=== PATIENT | male | born 1955 | race African-American/Black ===

== ENCOUNTER 2019-02-10 07:37 | Inpatient (IN) | payer OTHER ==
[2019-02-10] MEDS ORDERED: SODIUM CHLORIDE 0.9% 1,000 ML IV ONE (08:05)
[2019-02-10 08:58] LABS: Basophils % (A) 0 %; Eosinophils # (A) 0.2 k/uL (0-0.7); Eosinophils % (A) 2 %; HCT 41.1 % (39.0-53.0); HGB 13.6 gm/dL (13.0-17.5); Lymphocytes # (A) 1.6 k/uL (1.0-4.8); Lymphocytes % (A) 20 %; MCH 27.6 pg (25.0-35.0); MCV 83.8 fL (80.0-100.0); Monocytes # (A) 0.5 k/uL (0-1.0); Monocytes % (A) 6 %; Neutrophils # (A) 5.4 k/uL (1.3-7.7); Neutrophils % (A) 69 %; Platelet Count 181 k/uL (150-450); RBC 4.91 m/uL (4.30-5.90); RDW 15.4 % (11.5-15.5); WBC 7.8 k/uL (3.8-10.6)
--- NOTE | 2019-02-10 09:06 | ED ---
General Adult HPI - General Source: patient, EMS, RN notes reviewed Mode of arrival: EMS Limitations: altered mental status <Rory Alvarez - Last Filed: 02/10/19 09:35> <Gabriel Joyce - Last Filed: 02/10/19 09:55> - General Chief complaint: Altered Mental Status Stated complaint: mental health Time Seen by Provider: 02/10/19 07:38 - History of Present Illness Initial comments: This is a 63-year-old male presents to emergency department as a transfer from [facility] for possible rhabdomyolysis, altered mental. [place] when he became belligerent. Patient reportedly had marijuana on him. Patient was agitated, aggressive towards staff at the other hospital he was given Ativan and ketamine. Patient is drowsy, confused at this time. Patient did have a normal CT of his head. Patient had lab work which revealed evidence of THC and opiates in his drug screen. Patient's labwork showed elevated CK over 3000. Patient was given IV fluid bolus including D5 with sodium bicarb patient gives little information at this time though he has no specific complaints. Patient denies chest pain, shortness breath, headache or dizziness. Patient also reportedly had an episode of tachycardia and which they believe this was SVT though he was not converted or given any medications (Rory Alvarez) - Related Data Allergies Allergy/AdvReac Type Severity Reaction Status Date / Time No Known Allergies Allergy Verified 02/10/19 08:22 Review of Systems ROS Other: All systems not noted in ROS Statement are negative. <Rory Alvarez - Last Filed: 02/10/19 09:35> ROS Other: All systems not noted in ROS Statement are negative. <Gabriel Joyce - Last Filed: 02/10/19 09:55> ROS Statement: Those systems with pertinent positive or pertinent negative responses have been documented in the HPI. Past Medical History Past Medical History: Unable to Obtain History of Any Multi-Drug Resistant Organisms: Unobtainable Past Surgical History: Unable to Obtain Past Psychological History: Anxiety, Depression Smoking Status: Unknown if ever smoked Past Drug Use History: Marijuana, Opiates <Rory Alvarez - Last Filed: 02/10/19 09:35> General Exam Limitations: altered mental status General appearance: alert, in no apparent distress Head exam: Present: atraumatic, normocephalic, normal inspection Eye exam: Present: normal appearance, PERRL, EOMI. Absent: scleral icterus, conjunctival injection, periorbital swelling ENT exam: Present: normal exam, normal oropharynx, mucous membranes moist Neck exam: Present: normal inspection, full ROM. Absent: tenderness, meningismus, lymphadenopathy Respiratory exam: Present: normal lung sounds bilaterally. Absent: respiratory distress, wheezes, rales, rhonchi, stridor Cardiovascular Exam: Present: regular rate, normal rhythm, normal heart sounds. Absent: systolic murmur, diastolic murmur, rubs, gallop, clicks GI/Abdominal exam: Present: soft, normal bowel sounds. Absent: distended, tenderness, guarding, rebound, rigid Neurological exam: Present: alert, CN II-XII intact. Absent: oriented X3 Skin exam: Present: warm, dry, intact, normal color. Absent: rash <Rory Alvarez - Last Filed: 02/10/19 09:35> Course <Gabriel Joyce - Last Filed: 02/10/19 09:55> Vital Signs 02/10/19 07:40 Temperature 98.6 F Pulse Rate 98 Respiratory 18 Rate Blood Pressure 126/83 O2 Sat by Pulse 98 Oximetry - Reevaluation(s) Reevaluation #1: 02/10/19 09:51 PA supervision: I proceeded [id number] evaluation the patient he was transferr ed from [facility] emergency department for evaluation of altered mental status and rhabdomyolysis. Patient does demonstrate evidence of rhabdomyolysis he also has a positive urine drug screen. I did review the material sent from the other facility. CT was negative. I did discuss case with Dr. vásquez patient will be admitted with consultation by neurology and psychiatry. (Gabriel Joyce) EKG Findings - EKG Results: EKG: interpreted by ERMD, sinus rhythm (Sinus tachycardia rate of 113 AR interval 136 QRS duration 68 QT since QTC 328/449 right atrial enlargement some artifact present) <Gabriel Joyce - Last Filed: 02/10/19 09:55> Medical Decision Making - Lab Data Result diagrams: 02/10/19 08:45 02/10/19 08:45 <Rory Alvarez - Last Filed: 02/10/19 09:35> - Lab Data Result diagrams: 02/10/19 08:45 02/10/19 08:45 <Gabriel Joyce - Last Filed: 02/10/19 09:55> - Medical Decision Making 63-year-old male presented for transfer for delirium, elevated CK. Patient's CK is trending up. This is concerning there is in rhabdomyolysis. Patient will admitted for IV fluid hydration, psychiatric evaluation. (Rory Alvarez) - Lab Data Lab Results 02/10/19 02/10/19 02/10/19 Range/Units 08:45 08:45 08:45 WBC (3.8-10.6) k/uL RBC (4.30-5.90) m/uL Hgb (13.0-17.5) gm/dL Hct (39.0-53.0) % MCV (80.0-100.0) fL MCH (25.0-35.0) pg MCHC (31.0-37.0) g/dL RDW (11.5-15.5) % Plt Count (150-450) k/uL Neutrophils % % Lymphocytes % % Monocytes % % Eosinophils % % Basophils % % Neutrophils # (1.3-7.7) k/uL Lymphocytes # (1.0-4.8) k/uL Monocytes # (0-1.0) k/uL Eosinophils # (0-0.7) k/uL Basophils # (0-0.2) k/uL Sodium 139 (137-145) mmol/L Potassium 4.3 (3.5-5.1) mmol/L Chloride 105 (98-107) mmol/L Carbon Dioxide 25 (22-30) mmol/L Anion Gap 9 mmol/L BUN 16 (9-20) mg/dL Creatinine 0.92 (0.66-1.25) mg/dL Est GFR (CKD-EPI)AfAm >90 (>60 ml/min/1.73 sqM) Est GFR (CKD-EPI)NonAf 90 (>60 ml/min/1.73 sqM) Glucose 94 (74-99) mg/dL Plasma Lactic Acid Lucien 1.3 (0.7-2.0) mmol/L Calcium 9.1 (8.4-10.2) mg/dL Total Bilirubin 1.1 (0.2-1.3) mg/dL AST 95 H (17-59) U/L ALT 51 (21-72) U/L Alkaline Phosphatase 61 (38-126) U/L Ammonia 14 (<30) umol/L Creatine Kinase 4574 H* (55-170) U/L Troponin I (0.000-0.034) ng/mL Total Protein 7.2 (6.3-8.2) g/dL Albumin 4.2 (3.5-5.0) g/dL Urine Opiates Screen Detected H (NotDetected) Ur Oxycodone Screen Not Detected (NotDetected) Urine Methadone Screen Not Detected (NotDetected) Ur Propoxyphene Screen Not Detected (NotDetected) Ur Barbiturates Screen Not Detected (NotDetected) U Tricyclic Antidepress Not Detected (NotDetected) Ur Phencyclidine Scrn Not Detected (NotDetected) Ur Amphetamines Screen Not Detected (NotDetected) U Methamphetamines Scrn Not Detected (NotDetected) U Benzodiazepines Scrn Detected H (NotDetected) Urine Cocaine Screen Not Detected (NotDetected) U Marijuana (THC) Screen Detected H (NotDetected) Serum Alcohol <10 mg/dL 02/10/19 02/10/19 Range/Units 08:45 08:45 WBC 7.8 (3.8-10.6) k/uL RBC 4.91 (4.30-5.90) m/uL Hgb 13.6 (13.0-17.5) gm/dL Hct 41.1 (39.0-53.0) % MCV 83.8 (80.0-100.0) fL MCH 27.6 (25.0-35.0) pg MCHC 33.0 (31.0-37.0) g/dL RDW 15.4 (11.5-15.5) % Plt Count 181 (150-450) k/uL Neutrophils % 69 % Lymphocytes % 20 % Monocytes % 6 % Eosinophils % 2 % Basophils % 0 % Neutrophils # 5.4 (1.3-7.7) k/uL Lymphocytes # 1.6 (1.0-4.8) k/uL Monocytes # 0.5 (0-1.0) k/uL Eosinophils # 0.2 (0-0.7) k/uL Basophils # 0.0 (0-0.2) k/uL Sodium (137-145) mmol/L Potassium (3.5-5.1) mmol/L Chloride (98-107) mmol/L Carbon Dioxide (22-30) mmol/L Anion Gap mmol/L BUN (9-20) mg/dL Creatinine (0.66-1.25) mg/dL Est GFR (CKD-EPI)AfAm (>60 ml/min/1.73 sqM) Est GFR (CKD-EPI)NonAf (>60 ml/min/1.73 sqM) Glucose (74-99) mg/dL Plasma Lactic Acid Lucien (0.7-2.0) mmol/L Calcium (8.4-10.2) mg/dL Total Bilirubin (0.2-1.3) mg/dL AST (17-59) U/L ALT (21-72) U/L Alkaline Phosphatase (38-126) U/L Ammonia (<30) umol/L Creatine Kinase (55-170) U/L Troponin I 0.026 (0.000-0.034) ng/mL Total Protein (6.3-8.2) g/dL Albumin (3.5-5.0) g/dL Urine Opiates Screen (NotDetected) Ur Oxycodone Screen (NotDetected) Urine Methadone Screen (NotDetected) Ur Propoxyphene Screen (NotDetected) Ur Barbiturates Screen (NotDetected) U Tricyclic Antidepress (NotDetected) Ur Phencyclidine Scrn (NotDetected) Ur Amphetamines Screen (NotDetected) U Methamphetamines Scrn (NotDetected) U Benzodiazepines Scrn (NotDetected) Urine Cocaine Screen (NotDetected) U Marijuana (THC) Screen (NotDetected) Serum Alcohol mg/dL Disposition <Rory Alvarez - Last Filed: 02/10/19 09:35> <Gabriel Joyce - Last Filed: 02/10/19 09:55> Clinical Impression: Delirium, Rhabdomyolysis Disposition: ADMITTED IP TO THIS [facility] Condition: Fair Referrals: None,Stated [Primary Care Provider] - 1-2 days
[2019-02-10 09:12] LABS: Lactic Acid, Venous 1.3 mmol/L (0.7-2.0)
[2019-02-10 09:14] LABS: Amphetamine Screen,Urine Not Detected (NotDetected); Barbiturate Screen,Urine Not Detected (NotDetected); Benzodiazepines Screen,Urine Detected (NotDetected); Cocaine Screen,Urine Not Detected (NotDetected); Methadone Screen, Urine Not Detected (NotDetected); Opiate Screen,Urine Detected (NotDetected); Oxycodone Screen, Urine Not Detected (NotDetected); Phencyclidine Screen,Urine Not Detected (NotDetected); Tricyclic Antidepressant,Urine Not Detected (NotDetected); Urn Cannabinoid Scrn Detected (NotDetected)
[2019-02-10 09:19] LABS: ALT 51 U/L (21-72); AST 95 U/L (17-59); African American GFR (CKD) >90 (>60 ml/min/1.73 sqM); Albumin 4.2 g/dL (3.5-5.0); Alcohol <10 mg/dL; Alkaline Phosphatase 61 U/L (38-126); Anion Gap 9 mmol/L; Blood Urea Nitrogen 16 mg/dL (9-20); Calcium 9.1 mg/dL (8.4-10.2); Carbon Dioxide 25 mmol/L (22-30); Chloride 105 mmol/L (98-107); Glucose 94 mg/dL (74-99); Potassium 4.3 mmol/L (3.5-5.1); Sodium 139 mmol/L (137-145); Total Bilirubin 1.1 mg/dL (0.2-1.3); Total Protein 7.2 g/dL (6.3-8.2)
[2019-02-10 09:34] LABS: Creatine Kinase 4574 U/L (55-170)
[2019-02-10] MEDS ORDERED: ONDANSETRON 4 MG/2 ML VIAL IVP PRN (09:38)
[2019-02-10] MEDS ORDERED: NALOXONE 0.4 MG/ML 1 ML VIAL IV PRN (09:38)
[2019-02-10 10:54] VITALS: BMI 26.6
[2019-02-10] MEDS: SODIUM CHLORIDE 0.9% 1,000 ML IV SCH ×3 (11:33→21:30)
[2019-02-10] MEDS ORDERED: QUEtiapine 25 MG TAB PO STA (14:53)
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
--- NOTE | 2019-02-10 16:25 | P.DS ---
Providers Date of admission: 02/10/19 09:55 Attending physician: Dolly Tabor Consults: 02/10/19 09:39 Consult Physician Urgent Consulting Provider: [place]iz Consult Reason/Comments: Delirium Do you want consulting provider notified?: Yes Primary care physician: Stated None Hospital Course: Please refer to manage. For further details Patient Condition at Discharge: Fair Plan - Discharge Summary Discharge Rx Participant: No New Discharge Prescriptions: No Action HYDROcodone/APAP 10-325MG [[place] 10-325] 1 tab PO Q6HR PRN PRN Reason: Pain Gabapentin [Neurontin] 300 mg PO TID Discharge Medication List Gabapentin [Neurontin] 300 mg PO TID 02/10/19 [History] HYDROcodone/APAP 10-325MG [[place] 10-325] 1 tab PO Q6HR PRN 02/10/19 [History] Follow up Appointment(s)/Referral(s): None,Stated [Primary Care Provider] - 1-2 days
[2019-02-10 16:48] LABS: Appearance,Urine Clear (Clear); Bilirubin,Urine Negative (Negative); Blood,Urine Negative (Negative); Color,Urine Yellow; Glucose,Urine (UA) Negative (Negative); Ketones,Urine 1+ (Negative); Leukocyte Esterase,Urine Negative (Negative); Nitrite,Urine Negative (Negative); Protein,Urine Negative (Negative); Specific Gravity,Urine 1.012 (1.001-1.035); Urobilinogen,Urine <2.0 mg/dL (<2.0)
[2019-02-10] MEDS: LORazepam 2 MG/ML INJ IV PRN ×2 (17:36→21:30)
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
--- NOTE | 2019-02-10 18:16 | CT ---
EXAMINATION: CT brain wo con DATE AND TIME: 02/10/2019 6:02 PM CLINICAL INDICATION: PHH; Head trauma, rule out SDH TECHNIQUE: Standard departmental protocol.; 1177; COMPARISON: None. FINDINGS: The calvarium is intact. There is no intracranial hemorrhage. There is no intracranial mass or mass effect. No definite new intra-axial or extra-axial attenuation defect. The paranasal sinuses, middle ear cavities, and mastoid sinus air cells are clear. The orbits are unremarkable. IMPRESSION: NO ACUTE PROCESS.
[2019-02-10] MEDS: QUEtiapine 25 MG TAB PO SCH ×2 (21:30→21:37)
[2019-02-11] MEDS: LORazepam 2 MG/ML INJ IV PRN ×4 (00:16→14:11)
[2019-02-11] MEDS: HALOPERIDOL LACTATE 5 MG/ML 1 ML VIAL IM PRN ×2 (07:11→15:34)
[2019-02-11] MEDS: SODIUM CHLORIDE 0.9% 1,000 ML IV SCH ×2 (10:37→17:58)
[2019-02-11] MEDS ORDERED: PREGABALIN 75 MG CAP PO SCH (11:30)
--- NOTE | 2019-02-11 13:04 | P.DS ---
Providers Date of admission: 02/10/19 09:55 Attending physician: Dolly Tabor Consults: 02/10/19 16:35 Consult Physician Routine Consulting Provider: Keith Porras Consult Reason/Comments: . Do you want consulting provider notified?: Already Contacted 02/11/19 06:49 Consult Physician Urgent Consulting Provider: Lotus Pickering Consult Reason/Comments: delirium Do you want consulting provider notified?: Yes Primary care physician: Stated None Hospital Course: patient is admitted for psychosis. Patient is medically stable to discharge to psychiatric floor if that's deemed necessary psychosis probably related little related tohis schizophrenia or substance abuse. Patient is much better today , not much agitated. Awaiting recommendations from psychiatry. Patient has muscle spasm in both legs because of which I'll use Requip. Patient is already on gabapentin which she can continue. Patient does have chronic low back pain PHYSICAL EXAMINATION: GENERAL: The patient is alert and oriented x3, not in any acute distress. Well developed, well nourished. HEENT: Pupils are round and equally reacting to light. EOMI. No scleral icterus. No conjunctival pallor. Normocephalic, atraumatic. No pharyngeal erythema. No thyromegaly. CARDIOVASCULAR: S1 and S2 present. No murmurs, rubs, or gallops. PULMONARY: Chest is clear to auscultation, no wheezing or crackles. ABDOMEN: Soft, nontender, nondistended, normoactive bowel sounds. No palpable organomegaly. MUSCULOSKELETAL: No joint swelling or deformity. EXTREMITIES: No cyanosis, clubbing, or pedal edema. NEUROLOGICAL: Gross neurological examination did not reveal any focal deficits. SKIN: No rashes. Assessment and Plan Plan: -Acute psychosis from excess marijuana use, although patient does have history of schizophrenia because of which I believe patient to be evaluated by psychiatry. -Elevated CPK not high enough to cause rhabdomyolysis that acute kidney injury although will obtain urine analysis did not show any RBC her myoglobin or hematuria did patient is medically stable to be discharged to psychiatric floor -Tachycardia secondary to marijuana overdoseimproved now -chronic low back pain -Muscle spasms probably restless leg syndrome continue with gabapentin and Requip Patient Condition at Discharge: Fair Plan - Discharge Summary Discharge Rx Participant: No New Discharge Prescriptions: No Action HYDROcodone/APAP 10-325MG [[place] 10-325] 1 tab PO Q6HR PRN PRN Reason: Pain Gabapentin [Neurontin] 300 mg PO TID Discharge Medication List Gabapentin [Neurontin] 300 mg PO TID 02/10/19 [History] HYDROcodone/APAP 10-325MG [[place] 10-325] 1 tab PO Q6HR PRN 02/10/19 [History] Follow up Appointment(s)/Referral(s): None,Stated [Primary Care Provider] - 1-2 days Discharge Disposition: TRANSFER TO PSYCH HOSP/UNIT
--- NOTE | 2019-02-11 14:18 | P.PN ---
Subjective Progress Note Date: 02/11/19 Patient has been still very confused. Sometimes talks to himself, talks to god, patient has been delusional. States legs were hurting, wants it to be cut off. Patient states that he does not smoke. He drinks half beer can only, very occasionally with some medication for helping erection. Objective - Vital Signs Vital signs: Vital Signs Temp 98.4 F 02/11/19 12:22 Pulse 98 02/11/19 12:22 Resp 16 02/11/19 12:22 BP 117/64 02/11/19 12:22 Pulse Ox 92 L 02/11/19 12:22 Intake & Output 02/10/19 02/11/19 02/11/19 18:59 06:59 18:59 Intake Total 0 Balance 0 Weight 74.843 kg Intake: Oral 0 Other: Voiding Method Toilet # Voids 1 3 3 - Exam Patient is alert and awake, fairly well oriented. His speech and language functions are normal. He has ordered affect. Patient states it is 2018. He states the month is January. He knows name of the current president. He could not tell the city or state he is currently in. He states that he lives in [place], although yesterday he was telling that he was in [place]. Patient apparently did move from [place] to [place] recently. His muscle strength and coordination appears normal. - Labs CBC & Chem 7: 02/10/19 08:45 02/10/19 08:45 Labs: Abnormal Lab Results - Last 24 Hours (Table) 02/10/19 Range/Units 08:45 Urine Ketones 1+ H (Negative) Assessment and Plan Assessment: * Altered mental status, probably due to substance abuse. * Aggressive behavior, delusions, hallucinations probably due to psychiatric disorder versus substance abuse. * Rhabdomyolysis Plan: * Computed tomography scan of head negative for any acute process. * Await psychiatric consultation for psychotic behavior, delusions. * Recommend abstinence from substance abuse. * Recheck CPK, will also check TSH, B12, folate.
[2019-02-11] MEDS: GABAPENTIN 300 MG CAP PO SCH ×2 (15:34→21:13)
[2019-02-11 16:13] LABS: T4, Free (Free Thyroxine) 1.08 ng/dL (0.78-2.19)
[2019-02-11] MEDS: HYDROcodone/APAP 10-325MG 1 EACH TAB PO PRN (18:00)
[2019-02-11] MEDS: NICOTINE 21MG/24HR PATCH TRANSDERM SCH (21:14)
[2019-02-11] MEDS: QUEtiapine 25 MG TAB PO SCH (21:14)
[2019-02-11] MEDS: OLANZapine 5 MG TAB PO SCH (22:52)
[2019-02-12] MEDS: HYDROcodone/APAP 10-325MG 1 EACH TAB PO PRN ×4 (00:07→20:21)
[2019-02-12] MEDS: SODIUM CHLORIDE 0.9% 1,000 ML IV SCH ×3 (04:06→18:05)
[2019-02-12] MEDS: OLANZapine 5 MG TAB PO SCH ×2 (07:08→20:21)
[2019-02-12] MEDS: NICOTINE 21MG/24HR PATCH TRANSDERM SCH (07:08)
[2019-02-12] MEDS: GABAPENTIN 300 MG CAP PO SCH ×3 (07:08→20:21)
--- NOTE | 2019-02-12 11:30 | CONS ---
CONSULTATION DATE OF SERVICE: 02/11/2019. PURPOSE OF CONSULTATION: Evaluate for psychosis. HISTORY OF PRESENTING ILLNESS: The patient is a 63-year-old male. He apparently presented to the hospital, brought here by police. He apparently had been making an effort to cross the [facility] [place] and was detained by police. According to documentation, he was agitated, aggressive and tried to hit [employer] staff when he was 1st detained. According to Dr. Tabor's admission note, the patient was noted to be "very pleasant to me." It was not clear whether the patient was able to provide any reliable history. Dr. Tabor documented that the patient was "still high on marijuana." He documented that the patient stated he uses marijuana daily and that he had "used little bit more today." He uses marijuana for back pain along with opioids. His CK was 4000. When I talked to the patient, he was not able to provide any reliable information. In fact, he provided little information at all. He would make some statements, though it was unclear what he was trying to communicate. He did make some comments that apparently had previously been noted where he was from [place] and made some statements to his that "God [place]." He made some comments about the idea that he needed to go to [place] that he apparently had a room in [place] and had paid for 1 night stay, though needed to pay more. He could not provide any further information regarding that. He could not provide any information regarding efforts to cross into [place]. He could not provide any information regarding his intentions for coming to [place]. Throughout the interview, he would make random comments about "coming to [place]" or "Coming to [place]." I talked to the patient's via telephone, (Gloria Villafuerte, telephone #[phone], [phone]) she stated that he was functioning fairly well. He apparently had been diagnosed with paranoid schizophrenia when he was in the [employer] going back to his 20s. There were also issues with heroin use at that time. Since that time, she was not aware that he had any psychiatric issues. He had not had any psychiatric hospitalizations other than possibly when he was in the . He was not on any psychotropic medications throughout his adult years. She has suggested that over the years, he has had some problems with use of opioid pain medications. She stated that in recent years, she was doing well. He functioned normally. He did not have any problems with hallucinations, delusions, mood disorder, or cognitive difficulties. In October, he apparently started using opioid pain medications again. Since that time, she saw deterioration in his behavior and function. He would get into agitated states where he would yell. He would turn music up very loud. He would leave lights on all night. By what she understood, he mainly used Vicodin, which he may have obtained from his sister. She stated that about 2 weeks ago, he abruptly drove from their home in the [place] stating that God told him he needed to go to the [facility]. He states that his only significant medical history is that he has had problems with high blood pressure and had bypass surgery some years ago. In the last 2 weeks, he had not been heard from until she got a call from [place] authorities. Apparently his car has been impounded. He has not had any contact with him, though came to understand that he was hospitalized in [place]. His notes that the only precipitating factors she was aware of is that in October, the family lost his grandson, which caused a lot of grief for the patient that may have been a precipitating factor for his starting to use Vicodin. Urine drug screen on 02/10/2019 at 11:59 am was positive for opioids, benzodiazepines, and marijuana. The patient's stated that he is a . [facility]. She requests that he be transferred to a VA facility. She states that her preference would be a VA facility in [place], as they have family members that live in that area. MENTAL STATUS EXAM: Patient was lying in bed. He was restless. He gave some eye contact. He seemed to hold his eyes half closed, almost as if he was squinting. He would respond to questions, but most of his answers were disconnected or at times noncoherent. He repeated a few different questions to me such as asking who I was. At a few different points, he seemed to get intense and a bit angry though then would change into having a calmer demeanor with some smiling. He was somewhat labile in his mood, though not significantly so. When I asked orienting questions, he said he thought it was Wednesday or Wednesday and that it was December. He did not seem to comprehend the question when I asked what year it was. In the midst of asking basic cognitive questions, cognitive orienting questions, the patient closed his eyes and appeared as if he was half asleep. He laid that way for a few minutes without moving and was somewhat curled up on his side. When I got up to leave and stated, I will come back later, he opened his eyes again. When I was at the door, he asked who I was and what was I asking. I stated that I had just asked what the date was and his response was "it is February." He repeated that 2 times and then made no other statements. ASSESSMENT: This 63-year-old male presents with psychosis. He is quite confused. It is unclear whether the psychotic symptoms relate specifically to his use of opioid pain medications and marijuana or whether there is a possible delirium. His mental health history is uncertain, though it does appear that he had an episode of psychosis about 40 years ago. There was no information provided by his indicating that he has a chronic psychotic disorder. At this point, the most appropriate disposition would be to look at a transfer to a MI facility, possibly [place] or [place] where he could have both ongoing medical and psychiatric care, a possibility would be a transfer to a med psych unit. I will continue to follow during his hospitalization. CAROLINA / THOMAS: [id number] /
--- NOTE | 2019-02-12 11:36 | PN ---
PROGRESS NOTE DATE OF SERVICE: 02/12/2019. CHIEF COMPLAINT: Evaluate for psychosis and confusion. INTERVAL HISTORY: I saw the patient this morning. He sat up in bed. He was quite alert. He was doing much better in communication compared to yesterday. He did not recall seeing me yesterday. He asked who I was and asked what his circumstances were. He was able to say that it was Wednesday, February 12, 2019. He knew he was in the hospital near [place]. He said "it starts with M, but I cannot pronounce the name." He was quite animated when he talked. He sat up in bed and was fairly conversant. He asked about how soon he would be able to get out of the hospital and stated that he was ready to leave today. I explained to him that my understanding was his car was impounded in [place]. He asked how he might be able to get his car and if he could get some help making contact with [place] to make that happen. 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 He said it was his understanding that the hospital here had his cane and car keys. When I explained that it may be a little more complicated than that. He seemed to be tempered by this statement and asked how he could get some help to make that happen. He again made reference to being in [place]. He apparently spent 1 night in a motel. He says he talked to somebody who was a administrative representative of [place] services and that there might be some treatment program for him. As to why he wants to spend some time in [place], he says he and his have had a falling out and his intention is to remain . When I explained the petition process and that he might be required to continue in a hospitalization for a matter of a few days or longer, he was accepting of that possibility. I explained that given the confusion he presented with, which continued up to yesterday, it would be appropriate for him to have further evaluation prior to discharge from a facility. He did not object to that possibility. When I talked to him, he was somewhat restless. He answered questions appropriately. His thoughts were clear and coherent. He smiled. He had a friendly disposition. His mood was even. He had a mildly elevated level of energy, though not significantly so. He did not appear to be distressed. ASSESSMENT: I will continue the current diagnosis and treatment plan. It would be reasonable at this point to plan transfer to a psychiatric facility for further evaluation based on petition. From circumstances over the last few days, it is quite likely that his confusion and psychosis relates to excessive use of opioids and marijuana. He seems to be clearing. There is the possibility that within the next few days he may clear to a point where hospitalization is not required. He does need social support basically to try to help get his car back so he has transportation. He indicates that he has a credit card with money available where he could arrange for housing. I will continue to follow. MMENMAL / REDDYN: [id number] /
--- NOTE | 2019-02-12 15:31 | P.PN ---
Subjective patient is admitted for psychosis. Patient is medically stable to discharge to psychiatric floor if that's deemed necessary psychosis probably related little related tohis schizophrenia or substance abuse. Patient is much better today , not much agitated. Awaiting recommendations from psychiatry. Patient has muscle spasm in both legs because of which I'll use Requip. Patient is already on gabapentin which she can continue. Patient does have chronic low back pain 02/12/2019 Patient was evaluated by psychiatric but the recommending transfer to [place] psychiatric facility. Case management will work on his disposition to [place] psychiatric tomorrow. Although patient is medically stable to be discharged on disc any IV fluids which she'll was started for elevated CPK although. I do not believe patient has rhabdomyolysis or CPKs high enough to cause any kidney dysfunction no further workup or testing is necessary. Psychiatrically patient is much better Constitutional: Denied any fatigue denied any fever. Cardio vascular: denied any chest pain, palpitations Gastrointestinal denied any nausea vomiting Pulmonary: Denied any shortness of breath cough Neurologic denied any new focal deficits All inpatient medications were reviewed and appropriate changes in these medications as dictated in the interval history and assessment and plan. Objective - Vital Signs Vital signs: Vital Signs Temp 98.3 F 02/12/19 15:00 Pulse 83 02/12/19 15:00 Resp 16 02/12/19 15:00 BP 105/65 02/12/19 15:00 Pulse Ox 96 02/12/19 15:00 Intake & Output 02/11/19 02/12/19 02/12/19 18:59 06:59 18:59 Intake Total 1200 Balance 1200 Intake: Oral 1200 Other: Voiding Method Bedside Commode Bedside Commode Bedside Commode Incontinent Urinal Urinal Incontinent Incontinent # Voids 3 10 3 # Bowel Movements 1 - Exam PHYSICAL EXAMINATION: GENERAL: The patient is alert and oriented x3, not in any acute distress. Well developed, well nourished. HEENT: Pupils are round and equally reacting to light. EOMI. No scleral icterus. No conjunctival pallor. Normocephalic, atraumatic. No pharyngeal erythema. No thyromegaly. CARDIOVASCULAR: S1 and S2 present. No murmurs, rubs, or gallops. PULMONARY: Chest is clear to auscultation, no wheezing or crackles. ABDOMEN: Soft, nontender, nondistended, normoactive bowel sounds. No palpable organomegaly. MUSCULOSKELETAL: No joint swelling or deformity. EXTREMITIES: No cyanosis, clubbing, or pedal edema. NEUROLOGICAL: Gross neurological examination did not reveal any focal deficits. SKIN: No rashes. - Labs CBC & Chem 7: 02/10/19 08:45 02/10/19 08:45 Labs: Abnormal Lab Results - Last 24 Hours (Table) 02/11/19 Range/Units 14:20 Creatine Kinase 3987 H* (55-170) U/L TSH 0.332 L (0.465-4.680) mIU/L Assessment and Plan Plan: -Acute psychosis from excess marijuana use, and schizophrenia, patient was ordered by psychiatric and they're recommending inpatient hospitalization in a psychiatric facility as mentioned above -Hypertension: Not requiring any medications for this -Hyperlipidemia -Elevated CPK not high enough to cause rhabdomyolysis that acute kidney injury although will obtain urine analysis did not show any hematuria or myoglobinuria, as CPK is improving patient will not need to stay in the hospital.
--- NOTE | 2019-02-12 22:49 | P.PN ---
Subjective Progress Note Date: 02/12/19 Patient has been still confused off-and-on. Patient now has been petitioned. He wants to go home. Patient states that he does not smoke. He drinks half beer can only, very occasionally with some medication for helping erection. Objective - Vital Signs Vital signs: Vital Signs Temp 98.3 F 02/12/19 15:00 Pulse 83 02/12/19 15:00 Resp 16 02/12/19 15:00 BP 105/65 02/12/19 15:00 Pulse Ox 96 02/12/19 15:00 Intake & Output 02/12/19 02/12/19 02/13/19 06:59 18:59 06:59 Intake Total 1200 Balance 1200 Intake: Oral 1200 Other: Voiding Method Bedside Commode Bedside Commode Urinal Urinal Incontinent Incontinent # Voids 10 3 - Exam Patient is alert and awake, fairly well oriented. His speech and language functions are normal. Patient states it is 2018. He states the month is January. He knows name of the current president. He could not tell the city or state he is currently in. He states that he lives in [place]. His muscle strength and coordination appears normal. Sensations normal. - Labs CBC & Chem 7: 02/10/19 08:45 02/10/19 08:45 Assessment and Plan Assessment: * Altered mental status, probably due to substance abuse versus psychiatric condition. * Aggressive behavior, delusions, hallucinations probably due to psychiatric di sorder versus substance abuse. * Rhabdomyolysis Plan: * Computed tomography scan of head negative for any acute process. * Patient has been petitioned. * Recommend abstinence from substance abuse. * Repeat CPK still elevated 3987. May continue to follow CPK. If persistently abnormal, then may need EMG testing/muscle biopsy. * B12 268, folate 11.1. We will start oral B12. * TSH is slightly decreased 0.332 (0.465-4.68). May need further evaluation of possible mild hyperthyroidism. * Patient to follow up by Dr. Jesse Carreno (neurology) from now onwards.
[2019-02-13] MEDS: HYDROcodone/APAP 10-325MG 1 EACH TAB PO PRN ×3 (02:10→13:57)
[2019-02-13] MEDS: LORazepam 2 MG/ML INJ IV PRN (06:16)
[2019-02-13] MEDS: NICOTINE 21MG/24HR PATCH TRANSDERM SCH (07:27)
[2019-02-13] MEDS: GABAPENTIN 300 MG CAP PO SCH (07:27)
[2019-02-13] MEDS: OLANZapine 5 MG TAB PO SCH (07:27)
[2019-02-13] MEDS ORDERED: CYANOCOBALAMIN 500 MCG TAB PO SCH (07:30)
--- NOTE | 2019-02-13 14:53 | P.DS ---
Providers Date of admission: 02/10/19 09:55 Attending physician: Dolly Tabor Consults: 02/10/19 16:35 Consult Physician Routine Consulting Provider: Keith Porras Consult Reason/Comments: . Do you want consulting provider notified?: Already Contacted 02/11/19 06:49 Consult Physician Urgent Consulting Provider: Lotus Pickering Consult Reason/Comments: delirium Do you want consulting provider notified?: Yes Primary care physician: Stated None Hospital Course: patient is admitted for psychosis. Patient is medically stable to discharge to psychiatric floor if that's deemed necessary psychosis probably related little related tohis schizophrenia or substance abuse. Patient is much better today , not much agitated. Awaiting recommendations from psychiatry. Patient has muscle spasm in both legs because of which I'll use Requip. Patient is already on gabapentin which she can continue. Patient does have chronic low back pain 02/12/2019 Patient was evaluated by psychiatric but the recommending transfer to [place] psychiatric facility. Case management will work on his disposition to [place] psychiatric tomorrow. Although patient is medically stable to be discharged on disc any IV fluids which she'll was started for elevated CPK although. I do not believe patient has rhabdomyolysis or CPKs high enough to cause any kidney dysfunction no further workup or testing is necessary. Psychiatrically patient is much better 02/13/2019 Patient was cleared from psychiatric perspective as well to be discharged to home. Patient will be discharged home to follow up with her primary care physician and psychiatrist as an outpatient. PHYSICAL EXAMINATION: GENERAL: The patient is alert and oriented x3, not in any acute distress. Well developed, well nourished. HEENT: Pupils are round and equally reacting to light. EOMI. No scleral icterus. No conjunctival pallor. Normocephalic, atraumatic. No pharyngeal erythema. No thyromegaly. CARDIOVASCULAR: S1 and S2 present. No murmurs, rubs, or gallops. PULMONARY: Chest is clear to auscultation, no wheezing or crackles. ABDOMEN: Soft, nontender, nondistended, normoactive bowel sounds. No palpable organomegaly. MUSCULOSKELETAL: No joint swelling or deformity. EXTREMITIES: No cyanosis, clubbing, or pedal edema. NEUROLOGICAL: Gross neurological examination did not reveal any focal deficits. SKIN: No rashes. Assessment and Plan Plan: -Acute psychosis from excess marijuana use, and schizophrenia, patient was cleared from psychiatric perspective to be discharged -Hypertension: Not requiring any medications for this -Hyperlipidemia -Elevated CPK not high enough to cause rhabdomyolysis that acute kidney injury although will obtain urine analysis did not show any hematuria or myoglobinuria, as CPK is improving . Patient Condition at Discharge: Fair Plan - Discharge Summary Discharge Rx Participant: No New Discharge Prescriptions: New rOPINIRole HCL [Requip] 0.25 mg PO HS #30 tab Continue HYDROcodone/APAP 10-325MG [[place] 10-325] 1 tab PO Q6HR PRN PRN Reason: Pain Gabapentin [Neurontin] 300 mg PO TID Discharge Medication List Gabapentin [Neurontin] 300 mg PO TID 02/10/19 [History] HYDROcodone/APAP 10-325MG [[place] 10-325] 1 tab PO Q6HR PRN 02/10/19 [History] rOPINIRole HCL [Requip] 0.25 mg PO HS #30 tab 02/11/19 [Rx] Follow up Appointment(s)/Referral(s): None,Stated [Primary Care Provider] - 1-2 days Patient Instructions/Handouts: Rhabdomyolysis (DC) Activity/Diet/Wound Care/Special Instructions: pt lives out of state and stated he will follow up upon returning home. Discharge Disposition: HOME SELF-CARE
[2019-02-13 15:03] VITALS: BP 132/87; PULSE 74; RESP 16; TEMP 98.3
--- NOTE | 2019-02-13 22:13 | CONS ---
CONSULTATION DATE OF SERVICE: 02/13/2019. PURPOSE OF CONSULTATION: Evaluate for psychosis. INTERVAL HISTORY: Patient has been doing fairly well. He had a quiet evening last night. He says that he slept fairly well today. He has been up. He is hoping to be discharged. When I saw the patient, he was fairly clear in mentation. He was well oriented. He knew the day, date and year. He knew where he was and what his circumstances were. The immediate issue relating to his discharge is that his car has been impounded. The best I understand it was impounded by [place] authorities most likely when he had attempted to enter [facility] on the [employer] [place]. At this point the patient does not know what steps he needs to go through to get his car so he has transportation. He says he has a plan of going to [place]. He believes that he has a positive situation set up for himself which involves some [employer] program. He said when he stayed there prior to coming to [place] he met a outside energy sales representatives of the [place] who said he gets some help in getting into the group. At this point, he has no place to live in the area as he drove up from [place]. He says that he has the intention of driving back to [place] and being able to secure a room at [facility] where he had stayed previously and that he could stay there for a month. He says he has insufficient funds through his credit card. He anticipates getting a taxi to get to his car, which presumably is on the [place] of the border. When I talked to him, he was clear in his thoughts. He was oriented and alert. He could tell me the day, date, and his current circumstances. When we talked about his car situation, he was agreeable to having staff contact his as she had apparently made some efforts contacting [place] authorities to find out the disposition of the impounded vehicle. He was willing to stay in the hospital for more time today while Social Work helps him figure out the details of how he can get his car back. He said he does have funds to be able to take a taxi to get to his car. Generally, the patient's mood has been stable. He understands the circumstances. He is appropriate in thoughts and behavior. He has been cooperative with care. ASSESSMENT: The patient is stable from a psychiatric standpoint to be discharged. He has had clearing of cognition. He is oriented. He understands his circumstances. He seems to have reasonable understanding of the process it may take to get his car back from a [place] authorities. At this point, it does not appear that the patient would require any psychotropic medications. I reviewed issues with social work, who will be contacting the patient's to see what information she may have regarding the impounded car situation. She will also make contact with [place] authorities also to see what can be done to assist in this matter. CAROLINA / THOMAS: [id number] / SILVIO
== END 2019-02-13 14:41 | disposition home or self-care (01) | DRG 897 ==
LOC: EC 07:37 → 3NMEDONC 09:55 → 4MS4W 12:16
PROVIDERS: ADMIT Hospitalist; ATTEND Hospitalist
DX: F12.959 Cannabis use, unspecified with psychotic disorder, unspecified (principal); F23 Brief psychotic disorder; M54.5 Low back pain; G89.29 Other chronic pain; I25.10 Atherosclerotic heart disease of native coronary artery without angina pectoris; M62.838 Other muscle spasm; F17.200 Nicotine dependence, unspecified, uncomplicated; E78.5 Hyperlipidemia, unspecified; G25.81 Restless legs syndrome; R00.0 Tachycardia, unspecified; G47.00 Insomnia, unspecified; I10 Essential (primary) hypertension; I49.3 Ventricular premature depolarization; S09.90XA Unspecified injury of head, initial encounter; Z95.1 Presence of aortocoronary bypass graft; Z91.5 Personal history of self-harm; Z79.82 Long term (current) use of aspirin; Z79.899 Other long term (current) drug therapy; Z79.02 Long term (current) use of antithrombotics/antiplatelets; Z71.51 Drug abuse counseling and surveillance of drug abuser; Z86.19 Personal history of other infectious and parasitic diseases
CPT/HCPCS: 36415; 70450; 80053; 80306; 80320; 81003; 82140; 82550; 82607; 82746; 83605; 84439; 84443; 84484; 85025; 86780; 93005; 96360; 99285